=== PATIENT | female | born 1955 | race Caucasian/White ===

== ENCOUNTER → 2019-10-04 | Outpatient (CLI) | payer OTHER ==
[~2019-10-04] MED LIST: ACYCLOVIR 400400 MG PO; ADCIRCA20 MG PO; ALLOPURINOL 10100 M1 PO; AMBIEN 10 MG TA10 MG PO; AMBIEN 5 MG TABL5 M1 PO; AMITRIPTYLINE H25 M2 PO; AMITRIPTYLINE H50 M2 PO; AMITRIPTYLINE100 MG PO; AREDS 2; ASPIR 8181 MG PO; B12INJ IM; BIOTIN2500 MCG PO; BIOTIN5 M1 PO; BREWER'S YEAST500 MG PO; BUMETANIDE 1 MG1 M1 PO; BUMETANIDE2 M1 PO; COLESTIPOL HCL1 G1 PO; FISH OIL 1,0001 EAC9 PO; FISH OIL 1,001000 M2 PO; FLORANEX PACKET1 GM PO; GABAPENTIN 100100 MG PO; HYDROCODONE-AP1 EAC6 PO; IRON325 PO; KLOR-CON 1010 MEQ PO; LETAIRIS10 MG PO; LEVEMIR SUBQ; LEVO-T75 MCG PO; LEVOTHYROXINE0.05 MG PO; LEXAPRO 10 MG T10 M1 PO; LEXAPRO20 MG PO; LIPITOR 20 MG T20 M1 PO; LIPITOR40 MG PO; LOMOTIL TABLET1 EACH PO; LOPRESSOR25 PO; LOW DOSE ASPIRI81 M1 PO; NEURONTIN 300300 M1 PO; NEURONTIN100 MG PO; NYSTATIN1 EA10; OMEPRAZOLE 20 M20 MG PO; OMEPRAZOLE10 MG PO; PRILOSEC OTC20 MG PO; PRILOSEC20 MG PO; PROAIR HFA8.5 GM INH; PROBIOTIC1 EAC1 PO; TOPROL XL25 MG PO; TUMS PO; TYLENOL WITH CO1 TA1 PO; TYLENOL325 MG PO; UNICOMPLEX M TA1 TA1 PO; VICTOZA0.6 MG/0.1 SUBQ; VITAMIN D2000 UNI1 PO; VOLTAREN GEL 1100 G1 TOP; VOLTAREN GEL 1100 G2; XANAX 0.25 MG0.25 MG PO; XANAX 0.5 MG0.5 M1 PO; [UNRECOGNIZED DRUG - OTHER] PO
--- NOTE | 2019-10-04 14:27 | NUR ---
VASCULAR ACCESS CONSULTED FOR PICC PLACEMENT.DISCUSSED BENEFITS AND RISK WITH PT,VERBALIZED UNDERSTANDING. POLY BASILIC WAS WIDELY PATENT WITH USG, 4FR SL POWER PICC TRIMMED TO 46CM INSERTED TO 0CM, BRISK BR. STAT CXR OBTAINED.
[2019-10-04 14:30] VITALS: BP 90/38
--- NOTE | 2019-10-04 14:43 | NUR ---
PICC RELEASED FOR IMMEDIATE USE TO [facility] PER PROTOCOL. CXR CONFIRMED SVC PLACEMENT
--- NOTE | 2019-10-04 16:07 | NUR ---
PATIENT HERE FOR PICC LINE PLACEMENT. VASCULAR ACCESS NURSE PLACED A LEFT ARM SINGLE LUMEN PICC FOR OUTPATIENT IV ANTIBIOTICS. CONFIRMED PICC PLACEMENT WITH CHEST XRAY. 1ST DOSE OF VANCOMYCIN INFUSING WITHOUT S/S OF ADVERSE REACTION.QUESTIONS ANSWERED
== END ==
LOC: OPONC 13:09
DX: T81.49XA Infection following a procedure, other surgical site, initial encounter (principal); S82.891A Other fracture of right lower leg, initial encounter for closed fracture; X58.XXXA Exposure to other specified factors, initial encounter
CPT/HCPCS: 27000; 95000; 95001

== ENCOUNTER 2019-10-08 14:06 | Emergency (ER) | payer OTHER ==
[~2019-10-08] VITALS: Ht 170.2 cm; Wt 105.2 kg
[2019-10-08 16:20] LABS: BASOPHILS 0.2 % (0.0-2.0); EOSINOPHILS 2.4 % (0.0-3.0); HEMATOCRIT 31.8 % (37.0-47.0); HEMOGLOBIN 10.1 gm/dL (12.0-15.0); LYMPHOCYTES 7.6 % (24.0-44.0); MCHC 31.8 g/dL (28.0-37.0); MCV 84.8 fL (80.0-100.0); MONOCYTES 3.2 % (1.0-8.0); PLATELET COUNT 185 thou/uL (150-400); POLYS 86.6 % (36.0-66.0); RBC 3.75 mil/uL (4.20-5.00); RDW 15.3 % (10.5-14.5); WBC 4.6 thou/uL (4.0-11.0)
[2019-10-08 16:33] LABS: CALCIUM 8.6 mg/dL (8.5-10.1); CREATININE 0.9 mg/dL (0.6-1.0); POTASSIUM 3.7 mmol/L (3.5-5.1)
[2019-10-08 16:50] LABS: ALBUMIN 3.4 g/dL (3.4-5.0); TOTAL BILIRUBIN 0.3 mg/dL (<0.1-1.0)
[2019-10-08 18:02] VITALS: BP 122/45
== END 2019-10-08 17:55 | disposition home or self-care (01) ==
LOC: ER 14:06
PROVIDERS: Physician Assistant
DX: L03.115 Cellulitis of right lower limb (principal); R50.9 Fever, unspecified; I11.0 Hypertensive heart disease with heart failure; I50.9 Heart failure, unspecified; E66.9 Obesity, unspecified; Z68.36 Body mass index [BMI] 36.0-36.9, adult; Z98.890 Other specified postprocedural states; Z90.49 Acquired absence of other specified parts of digestive tract; Z88.0 Allergy status to penicillin; Z88.1 Allergy status to other antibiotic agents

== ENCOUNTER 2019-10-18 20:12 | Emergency (ER) | payer OTHER ==
[~2019-10-18] VITALS: Ht 170.2 cm; Wt 108.9 kg
[2019-10-18 21:50] LABS: ABSOLUTE NEUTROPHILS 2.8 thou/uL (1.4-8.2); BASOPHILS 0.5 % (0.0-2.0); EOSINOPHILS 5.6 % (0.0-3.0); HEMATOCRIT 29.9 % (37.0-47.0); HEMOGLOBIN 9.6 gm/dL (12.0-15.0); LYMPHOCYTES 22.5 % (24.0-44.0); MCH 27.3 pg (26.0-34.0); MCV 85.2 fL (80.0-100.0); MONOCYTES 8.5 % (1.0-8.0); PLATELET COUNT 183 thou/uL (150-400); POLYS 62.9 % (36.0-66.0); RBC 3.51 mil/uL (4.20-5.00); RDW 16.3 % (10.5-14.5); WBC 4.5 thou/uL (4.0-11.0)
[2019-10-18 21:53] LABS: ANION GAP 8 mmol/L (7-16); BUN 10 mg/dL (7-18); CALCIUM 8.3 mg/dL (8.5-10.1); CHLORIDE 108 mmol/L (98-107); CO2 25 mmol/L (21-32); CREATININE 0.9 mg/dL (0.6-1.0); GLUCOSE 90 mg/dL (74-106); POTASSIUM 4.1 mmol/L (3.5-5.1); SODIUM 141 mmol/L (136-145)
[2019-10-18 22:01] LABS: TROPONIN-I <0.06 ng/mL (<0.06)
[2019-10-18 23:08] VITALS: BP 92/39
--- NOTE | 2019-10-19 10:57 | EKG ---
[address] [address] ELECTROCARDIOGRAM REPORT Name: DAVIDPALOMA MOSHE Room #: [facility] SERVICESMaría#: [id number] Admission: 10/18/19 Attend Phys: Discharge: 10/18/19 Date of : 55 Report #: [id number] THIS REPORT FOR: //name// [facility] ED Test Date: 2019-10-18 Test Time: 21:42:47 Pat Name: PALOMA HERNANDEZ Department: Room: Gender: F Professional Security Officer: AMRIT : 1955 Requested By: Peter Hernandez Order Number: [id number] MD: Noel Barnett Measurements Intervals Marshall Rate: 54 P: 19 OK: 182 QRS: 11 QRSD: 102 T: 10 QT: 488 QTc: 463 Interpretive Statements Sinus rhythm Probable anterior infarct, age indeterminate Compared to ECG 09/03/2014 07:01:54 Sinus tachycardia no longer present Atrial premature complex(es) no longer present Right-axis deviation no longer present T-wave abnormality no longer present Possible ischemia no longer present Myocardial infarct finding still present Electronically Signed On 10-19-2019 10:56:41 [employer] by Noel Barnett [email or web address] <ELECTRONICALLY SIGNED> By: Noel Barnett MD 10/19/19 1056 41 41 Noel Barnett MD /EPI
== END 2019-10-18 23:12 | disposition home or self-care (01) ==
LOC: ER 20:12
PROVIDERS: Emergency Medicine
DX: R06.02 Shortness of breath (principal); I11.0 Hypertensive heart disease with heart failure; I50.9 Heart failure, unspecified; Z98.890 Other specified postprocedural states; Z90.49 Acquired absence of other specified parts of digestive tract; Z88.0 Allergy status to penicillin; Z88.1 Allergy status to other antibiotic agents

== ENCOUNTER → 2019-10-31 | Outpatient (CLI) | payer OTHER ==
--- NOTE | 2019-10-31 16:46 | NUR ---
IN TO HAVE PICC LINE DECLOTTED. UNABLE TO GET BLOOD RETURN FROM PICC LINE, FLUSHED WITH MODERATE RESISTANCE. INSTILLED CATH SONU 2 MG IV PUSH AND LET DWELL FOR 1 HOUR. WAS THEN ABLE TO WITHDRAW CATH SONU AND GET A BRISK BLOOD RETURN. LABS DRAWN FROM PICC LINE. FLUSHED WITH 20 ML NS AND CLAMPED. DISMISSED IN STABLE CONDITION.
[2019-10-31 17:48] LABS: ABSOLUTE NEUTROPHILS 2.6 thou/uL (1.4-8.2); BASOPHILS 0.9 % (0.0-2.0); EOSINOPHILS 5.8 % (0.0-3.0); HEMATOCRIT 34.4 % (37.0-47.0); HEMOGLOBIN 10.8 gm/dL (12.0-15.0); LYMPHOCYTES 19.3 % (24.0-44.0); MCH 27.2 pg (26.0-34.0); MCHC 31.5 g/dL (28.0-37.0); MCV 86.5 fL (80.0-100.0); PLATELET COUNT 172 thou/uL (150-400); RBC 3.98 mil/uL (4.20-5.00); RDW 17.8 % (10.5-14.5); WBC 4.2 thou/uL (4.0-11.0)
[2019-10-31 18:06] LABS: ALBUMIN 3.5 g/dL (3.4-5.0); CALCIUM 8.8 mg/dL (8.5-10.1); CREATININE 0.9 mg/dL (0.6-1.0); TOTAL BILIRUBIN 0.3 mg/dL (<0.1-1.0)
== END ==
LOC: OPONC 14:07
PROVIDERS: Specialist
DX: T81.49XA Infection following a procedure, other surgical site, initial encounter (principal); S82.891D Other fracture of right lower leg, subsequent encounter for closed fracture with routine healing
CPT/HCPCS: 95113